=== PATIENT | female | born 1970 | race Caucasian/White ===

== ENCOUNTER → 2018-05-10 | Outpatient (CLI) | payer OTHER ==
[~2018-05-10] VITALS: Ht 160 cm; Wt 70.9 kg
[~2018-05-10] MED LIST: CALAN PO; DESYREL50 MG PO; ED ZOFRAN4 TAB/BOTT PO; LEXAPRO 10MG10 MG PO; OMEPRAZOLE D/R20 MG PO
[2018-05-10 13:30] VITALS: BP 159/97
== END ==
LOC: AMSURD 13:08
DX: R00.0 Tachycardia, unspecified (principal)

== ENCOUNTER → 2019-05-12 | Outpatient (CLI) | payer OTHER ==
[2018-05-10 13:30] VITALS: BP 159/97
== END ==
LOC: RAD 10:21
DX: R06.02 Shortness of breath (principal)

== ENCOUNTER → 2019-05-31 | Outpatient (CLI) | payer OTHER ==
[2018-05-10 13:30] VITALS: BP 159/97
[2019-05-31 16:18] LABS: POTASSIUM 3.8 mmol/L (3.5-5.1)
[2019-05-31 16:19] LABS: CALCIUM 9.7 mg/dL (8.3-10.5)
== END ==
LOC: LAB 15:58
PROVIDERS: Internal Medicine Cardiovascular Disease
DX: R60.9 Edema, unspecified (principal)